=== PATIENT | male | born 1985 | race Caucasian/White ===

== ENCOUNTER 2016-06-02 18:56 | Emergency (ER) | payer OTHER ==
[~2016-06-02] VITALS: Ht 177.8 cm; Wt 106.5 kg
[2016-06-02 19:09] VITALS: Ht 177.8 cm; Wt 106.5 kg
[2016-06-02] MEDS ORDERED: ELIM TOP (20:55)
[2016-06-02] MEDS ORDERED: HC1C30 TOP (20:55)
[2016-06-02] MEDS ORDERED: BEN25 PO (20:55)
--- NOTE | 2016-06-03 00:04 | ERD ---
ER Documentation Chief Complaint Date/Time DATE: 06/03/16 TIME: 00:02 Chief Complaint bug bites for a week HPI 31-year-old male with no significant past medical history presents the ED complaining of possible insect bites that have been his left anterior bowles and right hand. States that it is very itchy. Reports that his also has similar rash. Denies any fever, chills, shortness of breath, cough, loss of sensation, loss of range of motion, numbness or tingling. ROS All systems reviewed and are negative except as per history of present illness. Medications Home Meds Active Scripts Permethrin* (Elimite*) 5% Cr, 1 APPLIC TOP ONCE, #1 TUB apply from the neck to the toes. leave on for 8 hours and wash off. Prov:SARIAH WILCOX PA-C 06/02/16 Hydrocortisone* Topical (Hydrocortisone* Topical) 1%-28.35 Gm Cream..g., 1 APPLIC TOP Q6 Y for ITCHING, #1 TUB Prov:SARIAH WILCOX PA-C 06/02/16 Diphenhydramine Hcl* (Benadryl*) 25 Mg Cap, 25 MG PO Q6, #30 CAP Prov:SARIAH WILCOX PA-C 06/02/16 Allergies Allergies: Coded Allergies: No Known Allergy (Unverified , 06/02/16) PMhx/Soc Medical and Surgical Hx: pt denies Medical Hx, pt denies Surgical Hx Hx Alcohol Use: No Hx Substance Use: No Hx Tobacco Use: No Smoking Status: Unknown if ever smoked Physical Exam Vitals Vital Signs Date Time Temp Pulse Resp B/P Pulse Ox O2 Delivery O2 Flow Rate FiO2 06/02/16 19:09 98.3 67 16 120/70 98 Physical Exam Const: [id number]-[id number], well-nourished. In no acute distress. Head: Atraumatic, normocephalic Eyes: Normal Conjunctiva without injection ENT: Normal external ear, nose and mouth. Neck: Full range of motion. No meningismus. Resp: Clear to auscultation bilaterally. No wheezing, rhonchi, rales, or crackles. No accessory muscle use. No retractions. Cardio: Regular rate and rhythm, no murmurs Skin: No petechiae or rashes Back: No midline tenderness. No CVA tenderness. Ext: No cyanosis, or edema. Cap refill less than 2 seconds. Distal pulses intact bilaterally. 1 mm erythematous macular papular rash noted on the anterior bowles and right finger. No fluctuance, induration, bleeding noted. Neur: Awake and alert. Normal gait and coordination. Muscle strength 5/5. Sensation intact bilaterally. Psych: Normal Mood and Affect Procedures/MDM This is a 31-year-old male with no significant past medical history presents the ED complaining of insect bites that are very itchy. Patient is afebrile and nontoxic-appearing. Patient has normal vital signs. Patient's rash could be consistent with scabies versus insect bites versus beg bugs. Patient was given a prescription for hydrocortisone, permethrin, Benadryl. Other differential diagnosis considered include but is not limited to allergic contact dermatitis, urticaria, insect bites, cutaneous candidiasis, eczema, tinea infection, psoriasis. Low suspicion for erythema multiforme, SJS/TEN, sepsis, cellulitis, necrotizing fascitis, meningococcemia, gangrene or other emergent conditions. Follow up with primary care physician in 1-2 days. Instructed patient to return to the ED sooner for any worsening symptoms. Patient's questions were answered. Patient understood and agreed with discharge plan. Patient discharged stable. Departure Diagnosis: Primary Impression: Rash and nonspecific skin eruption Condition: Stable Patient Instructions: Self-Care for Skin Rashes, Scabies, Insect Bite Referrals: COMMUNITY CLINICS YOU HAVE RECEIVED A MEDICAL SCREENING EXAM AND THE RESULTS INDICATE THAT YOU DO NOT HAVE A CONDITION THAT REQUIRES URGENT TREATMENT IN THE EMERGENCY DEPARTMENT. FURTHER EVALUATION AND TREATMENT OF YOUR CONDITION CAN WAIT UNTIL YOU ARE SEEN IN YOUR DOCTORS OFFICE WITHIN THE NEXT 1-2 DAYS. IT IS YOUR RESPONSIBILITY TO MAKE AN APPOINTMENT FOR FOLOW-UP CARE. IF YOU HAVE A PRIMARY DOCTOR --you should call your primary doctor and schedule an appointment IF YOU DO NOT HAVE A PRIMARY DOCTOR YOU CAN CALL OUR PHYSICIAN REFERRAL HOTLINE AT IF YOU CAN NOT AFFORD TO SEE A PHYSICIAN YOU CAN CHOSE FROM THE FOLLOWING [facility] CLINICS [facility] [address] [facility] [address] [facility]. [facility] [address] [facility] [address] [facility]. [facility] [address] [facility]. [facility]. [address] [facility]. [facility] YOU HAVE RECEIVED A MEDICAL SCREENING EXAM AND THE RESULTS INDICATE THAT YOU DO NOT HAVE A CONDITION THAT REQUIRES URGENT TREATMENT IN THE EMERGENCY DEPARTMENT. FURTHER EVALUATION AND TREATMENT OF YOUR CONDITION CAN WAIT UNTIL YOU ARE SEEN IN YOUR DOCTORS OFFICE WITHIN THE NEXT 1-2 DAYS. IT IS YOUR RESPONSIBILITY TO MAKE AN APPOINTMENT FOR FOLOW-UP CARE. IF YOU HAVE A PRIMARY DOCTOR --you should call your primary doctor and schedule and appointment IF YOU DO NOT HAVE A PRIMARY DOCTOR YOU CAN CALL OUR PHYSICIAN REFERRAL HOTLINE AT . IF YOU CAN NOT AFFORD TO SEE A PHYSICIAN YOU CAN CHOSE FROM THE FOLLOWING [facility] INSTITUTIONS[facility] [address] [place] [address] [facility] [address] [place], [place] [id number] [place] [address] [address] [place] [address] [facility] URGENT C[facility]/SPECIALTIES Additional Instructions: Call your primary care doctor TOMORROW for an appointment during the next 2-3 days.See the doctor sooner or return here if your condition worsens before your appointment time. SARIAH WILCOX PA-C Jun 03, 2016 00:04
== END 2016-06-02 21:14 | disposition home or self-care (01) ==
LOC: FTE 18:56
DX: R21 Rash and other nonspecific skin eruption (principal)
CPT/HCPCS: 99283

== ENCOUNTER 2017-03-07 21:13 | Emergency (ER) | END 2017-03-08 04:16 | disposition home or self-care (01) ==